=== PATIENT | male | born 1990 | race Caucasian/White ===

== ENCOUNTER 2019-04-15 19:28 | Emergency (ER) | payer SELFPAY ==
[2019-04-15 19:48] LABS: BILIRUBIN,URINE NEGATIVE (NEGATIVE); GLUCOSE, URINE (UA) NEGATIVE (NEGATIVE); KETONES,URINE (UA) TRACE mg/dL (NEGATIVE); LEUKOCYTE ESTERASE, URINE NEGATIVE (NEGATIVE); NITRITE,URINE NEGATIVE (NEGATIVE); OCCULT BLOOD,URINE LARGE (NEGATIVE); PROTEIN,URINE TRACE mg/dL (NEGATIVE); UROBILINOGEN,URINE 0.2 (NORMAL) E.U./dL (NORMAL)
[2019-04-15 19:49] LABS: CLARITY,URINE HAZY (CLEAR)
[2019-04-15 20:02] LABS: BACTERIA,URINE None Seen /HPF (None Seen); RBC,URINE TNTC /HPF (0-5); SQUAMOUS EPITHELIAL CELL,UR NONE SEEN (<= Few)
[2019-04-15] MEDS ORDERED: NITROFURANTOIN MACRO 100 MG CAPSULE PO STA (20:24)
--- NOTE | 2019-04-15 20:27 | ED Physician Documentation ---
PD HPI MALE - Stated complaint Stated Complaint: MALE - Chief complaint Chief Complaint: UTI - History obtained from History obtained from: Patient - History of Present Illness Timing - onset: Today Timing - details: Abrupt onset Pain level now: 0 Associated symptoms: Dysuria (mild, nondescript discomfort with urination), Hematuria. No: Urinary frequency, Discharge, Genital sore / lesion, Testiclar pain Similar symptoms before: Has not had sx before Recently seen: Not recently seen - Additional information Additional information: c/o gross hematuria since this afternoon. he describes a very mild discomfort with urination. Denies abdominal pain, denies back/flank pain. Review of Systems Constitutional: denies: Fever GI: denies: Abdominal Pain : reports: Dysuria, Hematuria. denies: Frequency, Discharge, Testicular pain PD PAST MEDICAL HISTORY - Past Medical History Past Medical History: No - Past Surgical History Past Surgical History: Yes HEENT: Tonsil/Adenoidectomy - Present Medications Home Medications: Ambulatory Orders Medication Instructions Recorded Confirmed Nitrofurantoin Monohyd/M-Cryst 100 mg PO BID #9 capsule 04/15/19 [Macrobid 100 mg Capsule] - Allergies Allergies/Adverse Reactions: Allergies Allergy/AdvReac Type Severity Reaction Status Date / Time No Known Drug Allergies Allergy Verified 04/15/19 19:32 - Social History Does the pt smoke?: Yes Smoking Status: Current every day smoker Does the pt drink ETOH?: No Does the pt have substance abuse?: No - Immunizations Immunizations are current?: No Immunizations: TDAP >10years/unknown - POLST Patient has POLST: No PD ED PE NORMAL - Vitals Vital signs reviewed: Yes - General General: Alert and oriented X 3, No acute distress, Well developed/nourished - Abdomen Abdomen: Soft, Non tender - Back Back: No CVA TTP Results - Vitals Vitals: Vital Signs - 24 hr 04/15/19 04/15/19 19:30 20:33 Temperature 36.7 C 37.3 C Heart Rate 108 H 87 Respiratory 16 16 Rate Blood Pressure 163/76 H 147/90 H O2 Saturation 98 99 Oxygen O2 Source Room air - Labs Labs: Laboratory Tests 04/15/19 19:40 Urine Color DARK YELLOW Urine Clarity HAZY Urine pH 6.0 Ur Specific [place] 1.010 Urine Protein TRACE Urine Glucose (UA) NEGATIVE Urine Ketones TRACE Urine Occult Blood LARGE H Urine Nitrite NEGATIVE Urine Bilirubin NEGATIVE Urine Urobilinogen 0.2 (NORMAL) Ur Leukocyte Esterase NEGATIVE Urine RBC TNTC H Urine WBC 0-3 Ur Squamous Epith Cells NONE SEEN Urine Bacteria None Seen Ur Microscopic Review INDICATED Urine Culture Comments NOT INDICATED PD MEDICAL DECISION MAKING - ED course Complexity details: reviewed results, considered differential, d/w patient Departure - Departure Disposition: 01 Home, Self Care Clinical Impression: Hematuria Qualifiers: Hematuria type: gross Qualified Code(s): R31.0 - Gross hematuria Condition: Good Health Concerns: hematuria Plan of Treatment: antibiotic for possible urinary tract infection, return if worse, follow up with primary care provider if symptoms do not resolve within 3-5 days Care Goals: resolution of hematuria Assessment: see diagnosis Instructions: ED Hematuria Follow-Up: [facility] [Provider Group] [facility] [Provider Group] Prescriptions: Nitrofurantoin Monohyd/M-Cryst [Macrobid 100 mg Capsule] 100 mg PO BID #9 capsule Discharge Date/Time: 04/15/19 20:36
[2019-04-15 20:34] VITALS: BP 147/90
== END 2019-04-15 20:36 | disposition home or self-care (01) ==
LOC: ED 19:28
DX: R31.0 Gross hematuria (principal); R30.0 Dysuria; F17.200 Nicotine dependence, unspecified, uncomplicated
CPT/HCPCS: 81001; 99283; A9270; 81003; 87086

== ENCOUNTER 2019-04-24 18:45 | Emergency (ER) | payer MEDICAID ==
[2019-04-24 19:13] LABS: BILIRUBIN,URINE NEGATIVE (NEGATIVE); GLUCOSE, URINE (UA) NEGATIVE (NEGATIVE); KETONES,URINE (UA) NEGATIVE (NEGATIVE); LEUKOCYTE ESTERASE, URINE NEGATIVE (NEGATIVE); NITRITE,URINE NEGATIVE (NEGATIVE); OCCULT BLOOD,URINE LARGE (NEGATIVE); PROTEIN,URINE TRACE mg/dL (NEGATIVE); UROBILINOGEN,URINE 0.2 (NORMAL) E.U./dL (NORMAL)
[2019-04-24 19:16] LABS: CLARITY,URINE CLOUDY (CLEAR)
--- NOTE | 2019-04-24 19:16 | ED Physician Documentation ---
PD HPI ABD PAIN - Stated complaint Stated Complaint: LT KIDNEY PX - Chief complaint Chief Complaint: Abd Pain - History obtained from History obtained from: Patient - History of Present Illness Timing - onset: Other (Seen about a week ago for gross hematuria which has resolved. Diagnosed with urinary tract infection, finished a 5-day course of Bactrim. Today he had a brief episode of minutes of severe left flank pain radiating to the left abdomen, pain-free now. No personal history of renal colic.) Review of Systems Constitutional: denies: Fever, Chills Cardiac: denies: Chest pain / pressure, Palpitations Respiratory: denies: Dyspnea, Cough GI: reports: Abdominal Pain. denies: Nausea, Vomiting, Diarrhea PD PAST MEDICAL HISTORY - Past Surgical History Past Surgical History: Yes HEENT: Tonsil/Adenoidectomy - Present Medications Home Medications: Ambulatory Orders Medication Instructions Recorded Confirmed Nitrofurantoin Monohyd/M-Cryst 100 mg PO BID #9 capsule 04/15/19 [Macrobid 100 mg Capsule] Hydrocodone/Acetaminophen 1 - 2 each PO Q6H PRN #10 tablet 04/24/19 [Hydrocodon-Acetaminophen 5-325] Ibuprofen [Motrin] 800 mg PO Q8H PRN #30 tablet 04/24/19 Tamsulosin [Flomax] 0.4 mg PO DAILY #14 capsule 04/24/19 - Allergies Allergies/Adverse Reactions: Allergies Allergy/AdvReac Type Severity Reaction Status Date / Time No Known Drug Allergies Allergy Verified 04/15/19 19:32 - Social History Does the pt smoke?: Yes Smoking Status: Current every day smoker Does the pt drink ETOH?: No Does the pt have substance abuse?: No - Immunizations Immunizations are current?: No Immunizations: TDAP >10years/unknown - POLST Patient has POLST: No PD ED PE NORMAL - Vitals Vital signs reviewed: Yes - General General: Alert and oriented X 3, No acute distress - Abdomen Abdomen: Normal bowel sounds, Soft, Non tender - Back Back: No CVA TTP, No spinal TTP - Derm Derm: Normal color, Warm and dry - Neuro Neuro: Alert and oriented X 3, Normal speech Results - Vitals Vitals: Vital Signs - 24 hr 04/24/19 04/24/19 04/24/19 18:50 19:09 19:57 Temperature 36.4 C L 37.4 C Heart Rate 109 H 109 H 95 Respiratory 18 18 16 Rate Blood Pressure 146/88 H 146/88 H 136/77 H O2 Saturation 100 100 97 Oxygen O2 Source Room air - Labs Labs: Laboratory Tests 04/24/19 19:00 Urine Color LT RED Urine Clarity CLOUDY Urine pH 6.0 Ur Specific [place] 1.015 Urine Protein TRACE Urine Glucose (UA) NEGATIVE Urine Ketones NEGATIVE Urine Occult Blood LARGE H Urine Nitrite NEGATIVE Urine Bilirubin NEGATIVE Urine Urobilinogen 0.2 (NORMAL) Ur Leukocyte Esterase NEGATIVE Urine RBC TNTC H Urine WBC 0-3 Ur Squamous Epith Cells NONE SEEN Urine Bacteria None Seen Ur Microscopic Review INDICATED Urine Culture Comments NOT INDICATED - Rads (name of study) CT KUB Radiology: EMP read contemporaneously (5x8mm L UVJ stone) PD MEDICAL DECISION MAKING - ED course ED course: 28 yo male with resolved gross hematuria txed as UTI now resolved pain more c/w renal colic. No pain here. Stone proven on CT. Given meds in case pain recurs and to f/u with uro. Also given strainers Departure - Departure Disposition: 01 Home, Self Care Clinical Impression: Renal colic Condition: Good Plan of Treatment: Followup with urology for persistent symptoms: [facility]: [phone] Instructions: ED Stone Renal W Colic Prescriptions: Hydrocodone/Acetaminophen [Hydrocodon-Acetaminophen 5-325] 1 - 2 each PO Q6H PRN #10 tablet PRN Reason: pain Ibuprofen [Motrin] 800 mg PO Q8H PRN #30 tablet PRN Reason: PAIN &/OR FEVER Tamsulosin [Flomax] 0.4 mg PO DAILY #14 capsule Discharge Date/Time: 04/24/19 20:35
[2019-04-24 19:25] LABS: BACTERIA,URINE None Seen /HPF (None Seen); RBC,URINE TNTC /HPF (0-5); SQUAMOUS EPITHELIAL CELL,UR NONE SEEN (<= Few)
[2019-04-24] MEDS ORDERED: TAMSULOSIN 0.4 MG CAPSULE PO STA (19:40)
[2019-04-24] MEDS ORDERED: HYDROcod/ACET 5/325 Prepack 4 PO STA (19:41)
[2019-04-24 19:58] VITALS: BP 136/77
--- NOTE | 2019-04-24 20:25 | CT Report ---
Reason: R flank pain Procedure Date: 04/24/2019 Accession Number: [id number] / [id number] Procedure: CT - Abdomen/Pelvis WO CPT Code: FULL RESULT: EXAM: CT ABDOMEN AND PELVIS (CT KUB) WITHOUT CONTRAST. EXAM DATE: 04/24/2019 07:38 PM. CLINICAL HISTORY: Right flank pain. COMPARISONS: None. TECHNIQUE: Routine axial helical CT imaging was performed through the abdomen and pelvis without IV contrast. Reconstructions: Coronal and sagittal. In accordance with CT protocol optimization, one or more of the following dose reduction techniques were utilized for this exam: automated exposure control, adjustment of mA and/or KV based on patient size, or use of iterative reconstructive technique. FINDINGS: Lung Bases: Unremarkable. Right Kidney/Ureter: No stones, hydronephrosis, or hydroureter. No perinephric fat stranding. Left Kidney/Ureter: 0.8 x 0.5 cm distal left ureteral stone results in moderate hydroureter and hydronephrosis. Mild perinephric fat stranding. No contour deforming renal mass noted. No non obstructing stones are noted. Other Solid Organs: Noncontrast images of the solid organs are grossly unremarkable. Gallbladder/Bile Ducts: Fluid/fluid density in the gallbladder probably represent sludge. No obvious gallstones or inflammatory changes. Normal caliber common bile duct is noted. Peritoneal Cavity: No free fluid, free air or olga adenopathy. Bowel is grossly unremarkable. There are multiple diverticula seen which most severely affect the sigmoid colon. No wall thickening or adjacent inflammation seen. No obstruction noted. The appendix is well visualized and normal. Remaining stomach, small bowel and large bowel are normal. Pelvic Organs: See above for description of a distal left ureteral stone. Mild prostate and seminal vesicle enlargement noted. No prostate mass. No bladder stones or wall thickening. Otherwise the noncontrast images of the visualized pelvic organs are unremarkable. Vasculature: Unremarkable. Other: None. IMPRESSION: 1. Obstructing 0.5 x 0.8 cm distal left ureteral stone results in moderate left hydronephrosis. No additional nonobstructing left-sided renal stones or mass. 2. No right renal mass, stone or hydronephrosis. 3. Diverticulosis. Normal appendix. RADIA
== END 2019-04-24 20:35 | disposition home or self-care (01) ==
LOC: ED 18:45
DX: N13.2 Hydronephrosis with renal and ureteral calculous obstruction (principal); F17.200 Nicotine dependence, unspecified, uncomplicated
CPT/HCPCS: 74176; 81001; 99283; A9270; 81003; 87086

== ENCOUNTER 2019-08-25 07:33 | Emergency (ER) | payer MEDICAID ==
--- NOTE | 2019-08-25 08:12 | ED Physician Documentation ---
History of Present Illness - Stated complaint Stated Complaint: ABD PX - Chief complaint Chief Complaint: Abd Pain - History obtained from History obtained from: Patient - History of Present Illness Timing: How many weeks ago (1) - Additonal information Additional information: 28-year-old male developed heartburn 1 week ago when he took some Zantac without much relief took some Tagamet with little bit of relief and then he started some omeprazole and he feels that this helped quite a bit with this. He is here because his girlfriend is encouraged him to come to see the doctor about this because he is taking medication. He states that he did drink alcohol prior to the onset of the symptoms for about 2 days and he does not usually drink much in way of alcohol. He has had prior episode of reflux when he was a child. Review of Systems Constitutional: denies: Fever, Chills, Myalgias, Fatigue Eyes: denies: Decreased vision Ears: denies: Ear pain Nose: denies: Congestion Throat: denies: Sore throat Cardiac: denies: Chest pain / pressure, Palpitations Respiratory: denies: Dyspnea, Cough GI: denies: Abdominal Pain, Nausea, Vomiting : denies: Dysuria Skin: denies: Rash Musculoskeletal: denies: Neck pain PD PAST MEDICAL HISTORY - Past Surgical History Past Surgical History: Yes HEENT: Tonsil/Adenoidectomy - Present Medications Home Medications: Ambulatory Orders Medication Instructions Recorded Confirmed Nitrofurantoin Monohyd/M-Cryst 100 mg PO BID #9 capsule 04/15/19 [Macrobid 100 mg Capsule] Hydrocodone/Acetaminophen 1 - 2 each PO Q6H PRN #10 tablet 04/24/19 [Hydrocodon-Acetaminophen 5-325] Ibuprofen [Motrin] 800 mg PO Q8H PRN #30 tablet 04/24/19 Tamsulosin [Flomax] 0.4 mg PO DAILY #14 capsule 04/24/19 Sucralfate [Carafate] 1 gm PO ACHS #60 tablet 08/25/19 - Allergies Allergies/Adverse Reactions: Allergies Allergy/AdvReac Type Severity Reaction Status Date / Time No Known Drug Allergies Allergy Verified 04/15/19 19:32 - Social History Does the pt smoke?: Yes Smoking Status: Current every day smoker Does the pt drink ETOH?: No Does the pt have substance abuse?: No - Immunizations Immunizations are current?: No Immunizations: TDAP >10years/unknown - POLST Patient has POLST: No PD ED PE NORMAL - Vitals Vital signs reviewed: Yes (hypertensive ) - General General: Alert and oriented X 3, No acute distress, Well developed/nourished - HEENT HEENT: Atraumatic, PERRL, EOMI - Neck Neck: Supple, no meningeal sign, No bony TTP - Cardiac Cardiac: RRR, No murmur - Respiratory Respiratory: No respiratory distress, Clear bilaterally - Abdomen Abdomen: Normal bowel sounds, Soft, Non tender, Non distended - Back Back: No CVA TTP, No spinal TTP - Derm Derm: Normal color, Warm and dry, No rash - Extremities Extremities: No deformity, No edema - Neuro Neuro: Alert and oriented X 3, test manager 2-12 intact, No motor deficit, No sensory deficit, Normal speech Eye Opening: Spontaneous Motor: Obeys Commands Verbal: Oriented GCS Score: 15 - Psych Psych: Normal mood, Normal affect Results - Vitals Vitals: Vital Signs - 24 hr 08/25/19 07:37 Temperature 37 C Heart Rate 88 Respiratory 18 Rate Blood Pressure 150/100 H O2 Saturation 100 Oxygen O2 Source Room air PD MEDICAL DECISION MAKING - ED course Complexity details: considered differential, d/w patient ED course: 28-year-old previously well male with reflux esophagitis appears to be getting r elief with omeprazole. We will place him on some Carafate in addition and I have encouraged him to avoid alcohol and ibuprofen. Departure - Departure Disposition: 01 Home, Self Care Clinical Impression: GERD (gastroesophageal reflux disease) Qualifiers: Esophagitis presence: with esophagitis Qualified Code(s): K21.0 - Gastro- esophageal reflux disease with esophagitis Condition: Stable Instructions: ED GERD Follow-Up: [facility] [Provider Group] Prescriptions: Sucralfate [Carafate] 1 gm PO ACHS #60 tablet
[2019-08-25 08:43] VITALS: BP 136/88
== END 2019-08-25 08:43 | disposition home or self-care (01) ==
LOC: ED 07:33
DX: K21.0 Gastro-esophageal reflux disease with esophagitis (principal); F17.200 Nicotine dependence, unspecified, uncomplicated
CPT/HCPCS: 99282; 99284

== ENCOUNTER 2019-11-04 09:02 | Emergency (ER) | payer MEDICAID ==
[2019-11-04 09:21] VITALS: BP 129/81
--- NOTE | 2019-11-04 09:53 | ED Physician Documentation ---
PD HPI URI - Stated complaint Stated Complaint: SORE THROAT - Chief complaint Chief Complaint: Heent - History obtained from History obtained from: Patient - History of Present Illness Timing - onset: Yesterday Timing duration: Days (1) Timing details: Abrupt onset, Still present Associated symptoms: Fever, Sore throat, Swollen nodes. No: Nasal congestion, Dry cough Contributing factors: No: Sick contact Similar symptoms before: Diagnosis (previously with recurring strep throat. Had tonsillectomy years ago) Recently seen: Not recently seen Review of Systems Constitutional: reports: Fever, Chills Nose: denies: Rhinorrhea / runny nose, Congestion Throat: reports: Sore throat Respiratory: denies: Cough GI: denies: Nausea, Vomiting Skin: denies: Rash PD PAST MEDICAL HISTORY - Past Medical History Past Medical History: No - Past Surgical History Past Surgical History: Yes HEENT: Tonsil/Adenoidectomy - Present Medications Home Medications: Ambulatory Orders Medication Instructions Recorded Confirmed Nitrofurantoin Monohyd/M-Cryst 100 mg PO BID #9 capsule 04/15/19 [Macrobid 100 mg Capsule] Hydrocodone/Acetaminophen 1 - 2 each PO Q6H PRN #10 tablet 04/24/19 [Hydrocodon-Acetaminophen 5-325] Ibuprofen [Motrin] 800 mg PO Q8H PRN #30 tablet 04/24/19 Tamsulosin [Flomax] 0.4 mg PO DAILY #14 capsule 04/24/19 Sucralfate [Carafate] 1 gm PO ACHS #60 tablet 08/25/19 Cephalexin [Keflex] 500 mg PO Q6H #28 capsule 11/04/19 dexAMETHasone [Decadron] 4 mg PO DAILY #5 tablet 11/04/19 - Allergies Allergies/Adverse Reactions: Allergies Allergy/AdvReac Type Severity Reaction Status Date / Time No Known Drug Allergies Allergy Verified 04/15/19 19:32 - Social History Does the pt smoke?: Yes Smoking Status: Current every day smoker Does the pt drink ETOH?: No Does the pt have substance abuse?: No - Immunizations Immunizations are current?: No Immunizations: TDAP >10years/unknown - POLST Patient has POLST: No PD ED PE NORMAL - Vitals Vital signs reviewed: Yes - General General: Alert and oriented X 3, Well developed/nourished - HEENT HEENT: No: Pharynx benign (post tonsillectomy, but with pallate and posterior pharynx with redness and white exudate. No lesions/sores around gums nor lips. ) - Neck Neck: Supple, no meningeal sign, Other (anterior adenopathy) - Cardiac Cardiac: RRR, No murmur - Respiratory Respiratory: Clear bilaterally - Derm Derm: Normal color, Warm and dry - Neuro Neuro: Alert and oriented X 3, No motor deficit, Normal speech Results - Vitals Vitals: Vital Signs - 24 hr 11/04/19 09:17 Temperature 37.7 C H Heart Rate 98 Respiratory 18 Rate Blood Pressure 129/81 H O2 Saturation 96 Oxygen O2 Source Room air - Labs Labs: Laboratory Tests 11/04/19 09:20 Group A Strep Rapid Negative PD MEDICAL DECISION MAKING - ED course Complexity details: reviewed results, considered differential (clinically c/w strep. ), d/w patient Departure - Departure Disposition: 01 Home, Self Care Clinical Impression: Acute pharyngitis Qualifiers: Pharyngitis/tonsillitis etiology: streptococcus Qualified Code(s): J02.0 - Streptococcal pharyngitis Condition: Stable Record reviewed to determine appropriate education?: Yes Instructions: ED Strep Pharyngitis Poss Follow-Up: Ariel Martinez MD [Primary Care Provider] - Prescriptions: Cephalexin [Keflex] 500 mg PO Q6H #28 capsule dexAMETHasone [Decadron] 4 mg PO DAILY #5 tablet Comments: Your rapid strep test is negative but this certainly clinically sounds and looks like strep so we will treat it as such. Cephalexin as directed for a week. Decadron steroid for inflammation daily for 5 more days. Stay well-hydrated. Use some antiseptic rinse such as Listerine or baking soda with water a few times a day to cleanse the back of the throat. Tylenol and/or ibuprofen regularly for the next day or 2 for pain and fever and then as needed. Recheck if not improved well over the next few days. Discharge Date/Time: 11/04/19 10:37
[2019-11-04 10:06] LABS: RAPID STREP SCREEN Negative (Negative)
[2019-11-04] MEDS ORDERED: CHERRY SYRUP 10 ML UDC PO ONE (10:23)
[2019-11-04] MEDS ORDERED: IBUPROFEN 600 MG TABLET PO STA (10:23)
[2019-11-04] MEDS ORDERED: DEXAMETHASONE 10 MG/ML VIAL PO STA (10:23)
[2019-11-04] MEDS ORDERED: cephALEXin 250 MG CAPSULE PO STA (10:23)
== END 2019-11-04 10:37 | disposition home or self-care (01) ==
LOC: ED 09:02
DX: J02.0 Streptococcal pharyngitis (principal); F17.200 Nicotine dependence, unspecified, uncomplicated
CPT/HCPCS: 87070; 87430; 99283; A9270